=== PATIENT | female | born 1995 | race Caucasian/White ===

== ENCOUNTER 2017-12-27 14:25 | Emergency (ER) | payer OTHER ==
[~2017-12-27] VITALS: Ht 149.9 cm; Wt 79.4 kg
[~2017-12-27 14:25] MED LIST: NORE1PAT
[2017-12-27 14:45] VITALS: BP 119/89
== END 2017-12-27 17:17 | disposition home or self-care (01) ==
LOC: ER 14:25
DX: Z00.00 Encounter for general adult medical examination without abnormal findings (principal); Z88.2 Allergy status to sulfonamides; Z88.8 Allergy status to other drugs, medicaments and biological substances; Z87.440 Personal history of urinary (tract) infections
CPT/HCPCS: 93005; 99283